=== PATIENT | female | born 1975 | race Caucasian/White ===

== ENCOUNTER 2016-09-01 13:00 | Inpatient (IN) | payer OTHER ==
[~2016-09-01] VITALS: Ht 157.5 cm; Wt 110.6 kg
--- NOTE | ~2016-09-01 | OR ---
[facility] 41 Y [address] ROOM: [place] [address] LOCATION: [facility] ADMIT DATE: 09/15/2016 OR/Procedure Report DISCHARGE DATE: FAMILY PHYSICIAN: Steve Garvey MD ATTENDING PHYSICIAN: CAMILLE ASTUDILLO SURGEON: Camille Astudillo MD WOODEN TANK ERECTOR: 1. Ramiro Francois CST/ETTA. 2. Camille Warren. DATE OF PROCEDURE: 09/15/2016 PREOPERATIVE DIAGNOSIS: Degenerative joint disease, left knee. POSTOPERATIVE DIAGNOSIS: Degenerative joint disease, left knee. OPERATION: Left total knee arthroplasty with computer navigation. ANESTHESIA: Spinal anesthesia plus adductor canal block plus periarticular local anesthesia (ropivacaine with epinephrine and Toradol). ESTIMATED BLOOD LOSS: Less than 10 mL. DRAIN: None. SPECIMEN: None. COMPLICATIONS: None. IMPLANT SYSTEM: Velma Triathlon. 1. Size 3 left posterior stabilized femoral component. 2. Size 2 universal modular tibial baseplate. 3. A 9 mm posterior stabilized size 2 X3 tibial polyethylene insert. 4. A 29 mm oval X3 patellar component. INDICATIONS FOR SURGERY: Teodoro Reynolds is a 41-year-old female who presents with advanced left knee degenerative joint disease and associated severely compromised activities of daily living. The patient has decided to proceed with knee replacement after having been thoroughly counseled regarding the associated risks, benefits, and limitations. We have specifically reviewed the risks and implications of infection, deep venous thrombosis, pulmonary embolism, mortality, neurovascular complications, blood transfusion (and associated potential for disease transmission or transfusion reaction), stiffness, instability, mechanical deterioration of the components (due to wear and or loosening), and the potential need for revision. We have also emphasized the importance of active involvement and compliance with post- operative physical therapy as a means of optimizing range of motion and [facility] 41 Y [address] ROOM: [place] [address] LOCATION: [facility] ADMIT DATE: 09/15/2016 OR/Procedure Report DISCHARGE DATE: FAMILY PHYSICIAN: Steve Garvey MD ATTENDING PHYSICIAN: CAMILLE ASTUDILLO functional recovery. Informed consent has been granted. DESCRIPTION OF PROCEDURE: The patient was positioned supine after administration of anesthesia and prophylactic antibiotics. A well-padded pneumatic tourniquet was placed around the left proximal thigh, and the left lower extremity was prepped and draped with vigilant sterile technique. The patient's name as well as the intended operative side and procedure were confirmed with a verbal time-out involving myself, the circulating nurse, the scrub nurse, and the anesthesiologist. Examination under anesthesia demonstrated a large effusion. There was no erythema. There was no abnormal warmth. There were no active skin lesions or masses. Range of motion under anesthesia was from 5 degrees of hyperextension to 130 degrees of flexion. There was no ligamentous insufficiency. The left lower extremity was elevated and exsanguinated with an Esmarch wrap, and the pneumatic tourniquet was inflated to 300mmHg. The knee was approached through a longitudinal midline incision. A medial parapatellar arthrotomy was performed and the patella was everted. Examination of the joint space demonstrated an abundant amount of benign-appearing translucent synovial fluid. There were no loose bodies. There was no synovitis. There was a small popliteal cyst which I decompressed into the posteromedial aspect of the joint by dilating its point of communication with the posterior capsule. Cruciate ligaments were intact. The lateral meniscus was normal. There was mild inner perimeter fraying of the medial meniscus. The articular cartilage at the lateral femoral condyle was normal. There were superficial fissuring at the medial aspect of the lateral tibial plateau. There was full-thickness loss of articular cartilage involving a 1.5 cm diameter region of the anteromedial aspect of the medial tibial plateau. There were intermixed grade 3 and grade 4 degenerative changes throughout the majority of the medial femoral condyle. There was high-grade partial-thickness articular cartilage loss extending across the entire equator of the patella, and there was extensive full-thickness fissuring of the articular cartilage at the patella. There were no significant degenerative changes at the femoral trochlea. There were small osteophytes at the medial femoral condyle and medial tibial plateau. Remnants of the menisci and cruciate ligaments were excised. The Rebit navigation femoral tracker was pinned in place at the distal aspect of the femoral trochlea. Absence of motion between the femur and the tracking device was confirmed manually and visually. Femoral osseous landmarks were obtained in order to calibrate the computer navigation system. Landmarks included the center of rotation of the ipsilateral hip, the center-point of the distal femur, the femoral AP axis, 57 points on the medial femoral condyle PATIENT'S NAME: TEODORO REYNOLDS [facility] AGE: 41 Y [address] ROOM: [id number] [place], [place] [address] LOCATION: [facility] ADMIT DATE: 09/15/2016 OR/Procedure Report DISCHARGE DATE: FAMILY PHYSICIAN: Steve Garvey MD ATTENDING PHYSICIAN: CAMILLE ASTUDILLO articular surface, and 57 points on the lateral femoral condyle articular surface. The Unified Office computer navigation system was subsequently utilized to position the distal femoral resection block such that the distal femoral resection was performed perfectly perpendicular to the femoral mechanical axis. The distal femoral resection was performed with a Beam. oscillating saw. The Unified Office computer navigation tibial tracker was pinned in place at the anterior aspect of the tibial plateau. Absence of motion between the tibia and the tracking device was confirmed manually and visually. Tibial osseous landmarks were obtained in order to calibrate the computer navigation system. Landmarks included the center-point of the tibial plateau, the AP tibial axis, 57 points on the medial tibial plateau articular surface, 57 points on the lateral tibial plateau articular surface, the medial malleolus, and the lateral malleolus. The Unified Office computer navigation system was subsequently utilized to position the proximal tibial resection block such that the proximal tibial resection was performed perfectly perpendicular to the tibial mechanical axis. The proximal tibial resection was performed with a [employer] oscillating saw. Perpendicularity of the tibial resection with respect to the tibial shaft axis was reconfirmed by inserting a spacer- block attached to an extramedullary guide jassi. External rotation of the anterior and posterior femoral resections was set parallel to the epicondylar axis and carefully adjusted in order to create a rectangular flexion gap. The box resection was performed with a reciprocating saw. Anterior and posterior chamfer resections were performed with the oscillating saw. Posterior condyle osteophytes were excised with an osteotome. All other osteophytes were excised with a rongeur. Resection of all remnants of the menisci was reconfirmed. Flexion and extension gaps were confirmed to be symmetric and well balanced with a spacer-block technique. The patella resection was performed with an oscillating saw such that the composite thickness of the reconstructed patella was equivalent to the thickness of the ouzinkie patella. Patella tracking was optimal, and there was no need for a lateral retinacular release. All trial components were removed and all prepared osseous surfaces were thoroughly irrigated with pulsatile saline lavage and dried prior to cementing all three components in a single stage using Tabatha Simplex cement containing pre-mixed tobramycin. All extruded excess cement was removed. The entire joint space was thoroughly inspected and thoroughly irrigated with bacteriostatic pulsatile saline lavage to assure that there was no residual debris of any sort. Final range of motion was from full extension (with no passive hyperextension) PATIENT'S NAME: TEODORO REYNOLDS [facility] AGE: 41 Y [address] ROOM: [address] [address] LOCATION: [facility] ADMIT DATE: 09/15/2016 OR/Procedure Report DISCHARGE DATE: FAMILY PHYSICIAN: Steve Garvey MD ATTENDING PHYSICIAN: CAMILLE ASTUDILLO to 130 degrees of flexion. Patella tracking was reconfirmed to be optimal. There was excellent anteroposterior stability at 90 degrees of flexion. There was 0 mm of medial lift-off to valgus stress in full extension. There was 1 mm of lateral lift-off to varus stress in full extension. The arthrotomy was closed with multiple simple and [id number] interrupted #1 Vicryl. Subcutaneous tissues were thoroughly re-irrigated with bacteriostatic pulsatile saline lavage. Subcutaneous tissues were re- approximated with simple buried interrupted #0 Vicryl sutures. The skin was closed with simple buried interrupted 2-0 Vicryl sutures followed by surgical arian. The dressing consisted of Xeroform gauze, 4x4 gauze, ABD pads and two 6-inch Alex Wraps. There were no intra-operative complications. MD OSMAR LONDONO/modl /[id number] d: 09/15/161845 t: 09/17/162035, OPERATIVE SUMMARY
--- NOTE | ~2016-09-01 | DS ---
PATIENT'S NAME: TEODORO REYNOLDS [facility] AGE: 41 Y [address] ROOM: [place] [address] LOCATION: [facility] ADMIT DATE: 09/15/2016 Discharge Summary DISCHARGE DATE: 09/17/2016 FAMILY PHYSICIAN: Steve Garvey MD ATTENDING PHYSICIAN: Camille Astudillo PRIMARY DIAGNOSIS: Degenerative joint disease of the left knee. SECONDARY DIAGNOSES: 1. Hypertension. 2. Hyperlipidemia. 3. BMI of 44. PROCEDURE PERFORMED: Left total knee arthroplasty with computer navigation. HISTORY: The patient is a 41-year-old year old female, who presents with advanced left knee degenerative joint disease and associated severely compromised activities of daily living. The patient has decided to proceed with total knee arthroplasty after having been thoroughly counseled regarding the risks, benefits, limitations and alternatives. Please refer to the outpatient clinic notes and admission history and physical for this patient. HOSPITAL COURSE: The patient underwent left total knee arthroplasty on 09/15/2016 without complications. Spinal anesthesia plus adductor canal block plus periarticular local anesthesia was utilized. The patient received 24 hours of perioperative prophylactic antibiotics and remained hemodynamically stable, neurovascularly intact throughout the entire hospital course. The postoperative prophylactic deep venous thrombosis prophylaxis consisted of Xarelto, early mobilization and pneumatic compression devices. Daily physical therapy for gait training, transfer training range of motion and quadriceps isometric exercises were received. The patient progressed well in physical therapy. On the date of discharge, 09/17/2016, the incision at the knee was healing well and showed no signs of infection. DISPOSITION: Home. DISCHARGE ACTIVITY: The patient is to bear weight as tolerated with range of motion and quadriceps isometric exercises as instructed. The operative extremity is to be elevated at least 90% of the day. There is to be sterile 4x4 gauze dressings to the incision daily. Dr. Astudillo is to be notified immediately if there is any increased pain, fevers, chills erythema or drainage. DISCHARGE MEDICATIONS: Include: 1. Xarelto 10 mg, take 1 tab p.o. t.i.d. for DVT prevention. PATIENT'S NAME: TEODORO REYNOLDS [facility] AGE: 41 Y [address] ROOM: [place] [address] LOCATION: [facility] ADMIT DATE: 09/15/2016 Discharge Summary DISCHARGE DATE: 09/17/2016 FAMILY PHYSICIAN: Steve Garvey MD ATTENDING PHYSICIAN: Camille Astudillo 2. Diazepam 5 mg, take 1 tablet every 6 hours as needed for muscle spasms. 3. Dilaudid 2 mg, take 1 to 2 tablets p.o. every 4 hours as needed for pain. FOLLOWUP: Followup appointment is to be with Dr. Astudillo on 09/22/2016 for initial postoperative evaluation and x-rays at that time. SUNITHA VARGHESE FOR CAMILLE ASTUDILLO MD TLB/modl /[id number] d: 09/21/16 0840 t: 09/22/16 1109, DISCHARGE SUMMARY
[2016-09-01] MEDS ORDERED: MOTRIN800 MG PO (16:57)
[2016-09-01] MEDS ORDERED: BENICAR40 MG PO (16:59)
[2016-09-01] MEDS ORDERED: CYMBALTA60 MG PO (16:59)
[2016-09-01] MEDS ORDERED: THERA-VITE W/ B1 TAB PO (17:00)
[2016-09-01] MEDS ORDERED: ZOCOR20 M1 PO (17:00)
[2016-09-15 06:43] LABS: BILIRUBIN URINE NEGATIVE (NEGATIVE); BLOOD URINE NEGATIVE /UL (NEGATIVE); GLUCOSE URINE NEGATIVE (NEGATIVE); KETONE URINE NEGATIVE (NEGATIVE); LEUKOCYTES URINE 25 /UL (NEGATIVE); NITRITE URINE NEGATIVE (NEGATIVE); PROTEIN URINE 30 mg/dL (NEGATIVE); UROBILINOGEN URINE NORMAL (NORMAL)
[2016-09-15 06:44] LABS: COLOR URINE YELLOW (YELLOW); TURBIDITY URINE 1+ (CLEAR)
[2016-09-15 06:55] LABS: AMORPHOUS URINE 1+ (NEGATIVE); BACTERIA URINE FEW (NEGATIVE); MUCUS URINE 1+ (NEGATIVE); RBC URINE 0-2 #/HPF (NEGATIVE); WBC URINE 0-2 #/HPF (NEGATIVE)
--- NOTE | 2016-09-15 15:56 | NUR ---
Introduced self/role to patient who attended the preop class. Reports she lives in [place] with spouse who will be available to help upon discharge. Has walker. Reviewed and encouraged use of IS. Has foot pumps on bilat. Will follow and assist as needed.
--- NOTE | 2016-09-15 16:14 | NUR ---
Significant Event:Pt arrived to 3N at 1015. Pt has been up to chair and bedside commode with 1 assist. Pt tolerates activity well. Pt weight bearing as tolerated. Pt has minimal pain, rates pain a 1 on 0-10 scale. Pt describes pain in left knee as "burning". Pt has full sensation and CSM WNL. Pt is taking tylenol and dilaudid 2 mg to control pain. Pt does IS 10x every hour while awake and bed exercises 100x every hour. Pt oriented x3. Follow up:
--- NOTE | 2016-09-15 18:54 | NUR ---
I was preceptor for student nurse Rae Enamorado and agree with her charting for this shift.
--- NOTE | 2016-09-16 04:46 | NUR ---
Significant Event: A&O x3. Heart rate 98-107. Othwerise, VSS. Dressing is CDI. CSM WNL. Up to bathroom with 1 assist, gait belt and walker. IV saline locked. Ice to knee. Dilaudid and scheduled tylenol for pain, will update with times. Follow up:
--- NOTE | 2016-09-16 09:10 | NUR ---
Introduced self/role to patient, her Dagoberto and kids. They lives in [place]. She denied any barriers to going home or at home. Added my name to her marker board. Planning to go home tomorrow. Will continue to follow.
--- NOTE | 2016-09-16 16:25 | NUR ---
Significant Event: PT alert and oriented x3. VSS. CLEMENT wrap dry and intact. LISA hoes on during day off at HS. CSM WNL. Up to bathroom one assist, ambulate in bloom to joint class with PT with gaitbelt and walker. IV saline locked. Ice to knee, Pt rated pain at highest 7 on scale 0-10 during shift. IS 10x every hour while awkae and bed exercises. Scheduled tylenol given and PRN dilaudid 2mg given 1700. Follow up:
--- NOTE | 2016-09-17 03:41 | NUR ---
Significant Event: A/O X 3. SAT UP IN RECLINER CHAIR. AMBULATED TO BR WITH ONE ASSIST, WALKER AND GAITBELT, GOOD TOLERANCE. VOIDS GOOD AMOUNTS, NO BM. ACEWRAP DRSGS DRY-INTACT LEFT KNEE. EZ-WRAP TO LEFT KNEE. DENIES NUMBNESS OR TINGLING TO LOWER EXTREMITIES. GOTTEN DILAUDID 2MG TAB FOR PAIN LEFT KNEEAT 2138, RATE 7, LATER A 5, AND SLEEPING AFTERWARDS. ON ROUTINE SCHEDULED TYLENOL X STRENGTH 2300/0500. IV SALINE LOCK INTACT. Follow up:
[2016-09-17] MEDS ORDERED: TYLENOL EXTRA500 MG PO (10:42)
[2016-09-17] MEDS ORDERED: COLACE100 MG PO (10:43)
[2016-09-17] MEDS ORDERED: NEURONTIN300 MG PO (10:44)
[2016-09-17] MEDS ORDERED: MIRALAX17 GM PO (10:45)
[2016-09-17] MEDS ORDERED: XARELTO10 MG PO (10:46)
[2016-09-17] MEDS ORDERED: VALIUM5 MG PO (10:47)
[2016-09-17] MEDS ORDERED: DILAUDID 2MG(HYD2 MG PO (10:49)
[2016-09-17] MEDS ORDERED: CELEBREX200 MG PO (10:50)
--- NOTE | 2016-09-17 12:45 | NUR ---
D: PATIENT ALERT AND ORIENTED X3. CSM ASSESSMENTS WNL TO L) LEG. GAUZE/TUBIGRIP DRESSING TO L) KNEE C/D/I. AMBULATES TO BATHROOM AND UP TO CHAIR WITH SBA, USE OF WALKER/GAIT BELT. PAIN WELL CONTROLLED WITH DILAUDID 1 TAB GIVEN LAST AT 1218 AND TYLENOL EXTRA STRENGTH 2 TABS LAST AT 1142. BILATERAL KNEE HIGH LISA HOSE AND FOOT PUMPS ON. EZ WRAP TO L) KNEE. DISCHARGE INSTRUCTIONS REVIEWED WITH PATIENT AND , VERBALIZES UNDERSTANDING. PATIENT DISMISSED TO HOME, ACCOMPANIED BY . ASSISTED TO VEHICLE VIA W/D AND TA ASSISTANCE. DRESSING TO L) KNEE CHANGED THIS AM BY Chica HELTON.
== END 2016-09-17 12:45 | disposition disaster alternative care site (69) | DRG 470 ==
LOC: G3N 09-15 05:14
PROVIDERS: ADMIT Orthopaedic Surgery
PROC: 0SRD0J9 Replacement of Left Knee Joint with Synthetic Substitute, Cemented, Open Approach (ICD-10-PCS; principal; 2016-09-15)
DX: M17.12 Unilateral primary osteoarthritis, left knee (principal); Z68.41 Body mass index [BMI] 40.0-44.9, adult; I10 Essential (primary) hypertension; E78.5 Hyperlipidemia, unspecified
CPT/HCPCS: C1713; C1776; J0690; J1100; J1885; J2001; J2250; J2795; J7120

== ENCOUNTER → 2016-09-03 | Outpatient (CLI) | payer OTHER ==
[~2016-09-03] MED LIST: AMOXICILLIN500 MG PO; BENICAR40 MG PO; CELEBREX200 MG PO; COLACE100 MG PO; CYMBALTA60 MG PO; DILAUDID 2MG(HYD2 MG PO; MIRALAX17 GM PO; MOTRIN800 MG PO; NEURONTIN300 MG PO; THERA-VITE W/ B1 TAB PO; TYLENOL EXTRA500 MG PO; VALIUM5 MG PO; XARELTO10 MG PO; ZOCOR20 M1 PO
== END | disposition disaster alternative care site (69) ==
LOC: GPOC 09-01 13:00 → GNJRC 11:00
DX: Z01.812 Encounter for preprocedural laboratory examination (principal); M17.12 Unilateral primary osteoarthritis, left knee
CPT/HCPCS: C1713; C1776

== ENCOUNTER 2016-10-26 15:00 | Inpatient (IN) | payer OTHER ==
[~2016-10-26] VITALS: Ht 157.5 cm; Wt 113.3 kg
--- NOTE | ~2016-10-26 | DS ---
PATIENT'S NAME: TEODORO REYNOLDS [facility] AGE: 41 Y [address] ROOM: [place] [address] LOCATION: [facility] ADMIT DATE: 11/02/2016 Discharge Summary DISCHARGE DATE: 11/04/2016 FAMILY PHYSICIAN: Steve Garvey MD ATTENDING PHYSICIAN: Camille Astudillo PRIMARY DIAGNOSIS: Degenerative joint disease of the right knee. SECONDARY DIAGNOSES: 1. Hypertension. 2. Hyperlipidemia. 3. Obesity, BMI of 45. PROCEDURE PERFORMED: Right total knee arthroplasty with computer navigation. HISTORY: The patient is a 41-year-old female, who presents with advanced right knee degenerative joint disease and associated severely compromised activities of daily living. The patient has decided to proceed with total knee arthroplasty after having been thoroughly counseled regarding the risks, benefits, limitations and alternatives. Please refer to the outpatient clinic notes and admission history and physical for this patient. HOSPITAL COURSE: The patient underwent a right total knee arthroplasty on 11/02/2016 without complications. Spinal anesthesia plus adductor canal block plus periarticular local anesthesia was utilized. The patient received 24 hours of perioperative prophylactic antibiotics and remained hemodynamically stable, neurovascularly intact throughout the entire hospital course. The postoperative prophylactic deep venous thrombosis prophylaxis consisted of Xarelto 10 mg, early mobilization and pneumatic compression devices. Daily physical therapy for gait training, transfer training range of motion and quadriceps isometric exercises were received. The patient progressed well in physical therapy. On the date of discharge, 11/04/2016, the incision at the knee was healing well and showed no signs of infection. DISPOSITION: Home. DISCHARGE ACTIVITY: The patient is to bear weight as tolerated with range of motion and quadriceps isometric exercises as instructed. The operative extremity is to be elevated at least 90% of the day. There is to be sterile 4x4 gauze dressings to the incision daily. Dr. Astudillo is to be notified immediately if there is any increased pain, fevers, chills erythema or drainage. DISCHARGE MEDICATIONS: 1. Xarelto 10 mg, take one tab p.o. daily for DVT prevention. PATIENT'S NAME: TEODORO REYNOLDS [facility] AGE: 41 Y [address] ROOM: [address] [address] LOCATION: [facility] ADMIT DATE: 11/02/2016 Discharge Summary DISCHARGE DATE: 11/04/2016 FAMILY PHYSICIAN: Steve Garvey MD ATTENDING PHYSICIAN: Camille Astudillo 2. Valium 5 mg, take one-half tablet to one tablet every 6 hours as needed for muscle spasms. 3. Celebrex 200 mg, take one tab p.o. b.i.d. p.r.n. pain. 4. Dilaudid 2 mg, take 1 to 2 tablets p.o. every 4 hours as needed for pain. FOLLOWUP: Follow up appointment is to be with Dr. Astudillo on 11/09/2016 for initial postoperative evaluation and x-rays at that time. SUNITHA VARGHESE FOR CAMILLE ASTUDILLO MD TLB/modl /[id number] d: 11/18/16 0426 t: 11/19/16 0842, DISCHARGE SUMMARY
--- NOTE | ~2016-10-26 | OR ---
[facility]GE[facility] 41 Y [address] ROOM: [place] [address] LOCATION: [facility] ADMIT DATE: 11/02/2016 OR/Procedure Report DISCHARGE DATE: FAMILY PHYSICIAN: Steve Garvey MD ATTENDING PHYSICIAN: CAMILLE ASTUDILLO SURGEON: Camille Astudillo MD CHILD CARE ASSOCIATE TEACHER: 1. SUNITHA Singletary. 2. Ramiro Francois CST/SHOT POLISHER. DATE OF PROCEDURE: 11/02/2016 PRE-OP DIAGNOSIS: Advanced right knee degenerative joint disease (primary osteoarthritis), obesity. POST-OP DIAGNOSIS: Advanced right knee degenerative joint disease (primary osteoarthritis), obesity. OPERATION: Right total knee arthroplasty with computer navigation. ANESTHESIA: Spinal anesthesia plus adductor canal block plus periarticular local anesthesia (ropivacaine with epinephrine). ESTIMATED BLOOD LOSS: Less than 10 mL. DRAIN: None. SPECIMEN: None. COMPLICATIONS: None. IMPLANT SYSTEM: [employer]. 1. Size 3 right posterior stabilized femoral component. 2. Size 2 universal modular tibial baseplate. 3. An 11 mm posterior stabilized size 2 X3 tibial polyethylene insert. 4. A 29 mm oval X3 patella component. INDICATIONS FOR SURGERY: Teodoro Reynolds is a 41-year-old female who presents with advanced right knee degenerative joint disease and associated severely compromised activities of daily living. The patient has decided to proceed with knee replacement after having been thoroughly counseled regarding the associated risks, benefits, and limitations. We have specifically reviewed the risks and implications of infection, deep venous thrombosis, pulmonary embolism, mortality, neurovascular complications, blood transfusion (and associated potential for disease transmission or transfusion reaction), stiffness, instability, mechanical deterioration of the components (due to wear and or loosening), and the potential need for revision. We have also PAT[facility] AGE: 41 Y [address] ROOM: [place] [address] LOCATION: [facility] ADMIT DATE: 11/02/2016 OR/Procedure Report DISCHARGE DATE: FAMILY PHYSICIAN: Steve Garvey MD ATTENDING PHYSICIAN: CAMILLE ASTUDILLO emphasized the importance of active involvement and compliance with post- operative physical therapy as a means of optimizing range of motion and functional recovery. Informed consent has been granted. DESCRIPTION OF PROCEDURE: The patient was positioned supine after administration of anesthesia and prophylactic antibiotics. A well-padded pneumatic tourniquet was placed around the right proximal thigh, and the right lower extremity was prepped and draped with vigilant sterile technique. The patient's name as well as the intended operative side and procedure were confirmed with a verbal time-out involving myself, the circulating nurse, the scrub nurse, and the anesthesiologist. Examination under anesthesia demonstrated a large effusion. There was no erythema. There was no abnormal warmth. There were no active skin lesions or masses. There were no significant preexisting scars. Range of motion under anesthesia was from full extension to 130 degrees of flexion. There was no ligamentous insufficiency. The right lower extremity was elevated and exsanguinated with an Esmarch wrap, and the pneumatic tourniquet was inflated to 300mmHg. The knee was approached through a longitudinal midline incision. A medial parapatellar arthrotomy was performed and the patella was everted. Examination of the joint space demonstrated a large amount of benign-appearing translucent synovial fluid. Cruciate ligaments were intact. There were no loose bodies. There was generalized mildly proliferative synovitis. No synovectomy was performed. There were intermixed grade 3 and grade 4 degenerative changes across the inferior half of the apex of the patella and inferior half of the medial facet of the patella. There were grade 2 degenerative changes at the medial half of the femoral trochlea. There were very small osteophytes at the medial and lateral margins of the femoral trochlea. There were intermixed grade 3 and grade 4 degenerative changes throughout the medial femoral condyle. There was a 1.5 cm diameter region of full-thickness articular cartilage loss at the anterior portion of the medial tibial plateau. There was extensive grade 3 chondromalacia throughout the remainder of the medial tibial plateau. There were mild grade 2 degenerative changes and a very small osteophyte at the lateral femoral condyle. There were grade 2 degenerative changes and a very small osteophyte at the lateral tibial plateau. There was mild inner perimeter tearing of the medial meniscus. There was mild inner perimeter tearing of the lateral meniscus. There was a prominent varicosity at the meniscal capsular junction of the lateral meniscus. Remnants of the menisci and cruciate ligaments were excised. The [employer] navigation femoral tracker was pinned in place at the distal aspect of the femoral trochlea. Absence of motion between the femur and the tracking PATIENT'S NAME: TEODORO REYNOLDS [facility] AGE: 41 Y [address] ROOM: [address] [place] [id number] LOCATION: [facility] ADMIT DATE: 11/02/2016 OR/Procedure Report DISCHARGE DATE: FAMILY PHYSICIAN: Steve Garvey MD ATTENDING PHYSICIAN: CAMILLE ASTUDILLO device was confirmed manually and visually. Femoral osseous landmarks were obtained in order to calibrate the computer navigation system. Landmarks included the center of rotation of the ipsilateral hip, the center-point of the distal femur, the femoral AP axis, 57 points on the medial femoral condyle articular surface, and 57 points on the lateral femoral condyle articular surface. The [employer] computer navigation system was subsequently utilized to position the distal femoral resection block such that the distal femoral resection was performed perfectly perpendicular to the femoral mechanical axis. The distal femoral resection was performed with a [employer] oscillating saw. The [employer] computer navigation tibial tracker was pinned in place at the anterior aspect of the tibial plateau. Absence of motion between the tibia and the tracking device was confirmed manually and visually. Tibial osseous landmarks were obtained in order to calibrate the computer navigation system. Landmarks included the center-point of the tibial plateau, the AP tibial axis, 57 points on the medial tibial plateau articular surface, 57 points on the lateral tibial plateau articular surface, the medial malleolus, and the lateral malleolus. The [employer] computer navigation system was subsequently utilized to position the proximal tibial resection block such that the proximal tibial resection was performed perfectly perpendicular to the tibial mechanical axis. The proximal tibial resection was performed with a [employer] Precision oscillating saw. Perpendicularity of the tibial resection with respect to the tibial shaft axis was reconfirmed by inserting a spacer- block attached to an extramedullary guide jassi. External rotation of the anterior and posterior femoral resections was set parallel to the epicondylar axis and carefully adjusted in order to create a rectangular flexion gap. The box resection was performed with a reciprocating saw. Anterior and posterior chamfer resections were performed with the oscillating saw. Posterior condyle osteophytes were excised with an osteotome. All other osteophytes were excised with a rongeur. Resection of all remnants of the menisci was reconfirmed. Flexion and extension gaps were confirmed to be symmetric and well balanced with a spacer-block technique. The patella resection was performed with an oscillating saw such that the composite thickness of the reconstructed patella was equivalent to the thickness of the sioux patella. Patella tracking was confirmed to be optimal. Patellar tracking was optimal, and there was no need for a lateral retinacular release. All trial components were removed and all prepared osseous surfaces were thoroughly irrigated with pulsatile saline lavage and dried prior to cementing all three components in a single stage using [employer] Simplex cement containing pre-mixed tobramycin. All extruded excess cement was removed. The entire PATIENT'S NAME: TEODORO REYNOLDS [facility] AGE: 41 Y [address] ROOM: [address] [address] LOCATION: [facility] ADMIT DATE: 11/02/2016 OR/Procedure Report DISCHARGE DATE: FAMILY PHYSICIAN: Steve Garvey MD ATTENDING PHYSICIAN: CAMILLE ASTUDILLO joint space was thoroughly inspected and thoroughly irrigated with bacteriostatic pulsatile saline lavage to assure that there was no residual debris of any sort. Final range of motion was from full extension (with no passive hyperextension) degrees of extension to 130 degrees of flexion. Patella tracking was reconfirmed to be optimal. There was very good anteroposterior stability at 90 degrees of flexion. There was less than 1 mm of medial lift-off to valgus stress in full extension. There was 1 mm of lateral lift-off to varus stress in full extension. The arthrotomy was closed with multiple simple and [id number] interrupted #1 Vicryl. Subcutaneous tissues were thoroughly re-irrigated with bacteriostatic pulsatile saline lavage. Subcutaneous tissues were re- approximated with simple buried interrupted #0 Vicryl sutures. The skin was closed with simple buried interrupted 2-0 Vicryl sutures followed by surgical arian. The dressing consisted of Xeroform gauze, 4x4 gauze, ABD pads and two 6-inch Alex Wraps. There were no intra-operative complications. It should be noted that the physician's nursing home assistant played an active, integral role throughout this entire operation. By providing expert retraction, they greatly facilitated and expedited safe and effective exposure of the distal femur, proximal tibia and patella for preparation and implantation of the components. They were also actively involved in the patient's positioning, prepping and draping, as well as wound closure. MD OSMAR LONDONO/raleigh /[id number] d: 11/02/161906 t: 11/04/16 1745, OPERATIVE SUMMARY
[~2016-10-26 15:00] MED LIST changes: -AMOXICILLIN500 MG PO
[2016-10-26] MEDS ORDERED: AMOXICILLIN500 MG PO (15:08)
--- NOTE | 2016-11-02 17:23 | NUR ---
Significant Event: Pt doing great, VSS 1900 is the 3rd hourly, on RA, Up to BR x1, inc prior to that and 400 on BSC, Pain well controlled w/ PO Dilaudid, last dose 1555, denies N/V, CSM's are WNL, Ancef due at 1800, gave at 1730 Follow up: Pain
--- NOTE | 2016-11-03 03:42 | NUR ---
Significant Event: Dressing is clean, dry and intact. CSM WNL. Voids without difficulty. 1 assist with transfers. Dilaudid last at 0257. Valium at 0011. On 1 L of oxygen nasal cannula. Follow up:
--- NOTE | 2016-11-03 10:05 | NUR ---
Introduced self/role to patient. She lives in [place] with her . She isn't aware of any barriers to going home or at home. She is planning on dismissal tomorrow. Added my name to her marker board, will continue to follow.
--- NOTE | 2016-11-03 14:47 | NUR ---
Significant Event: Ambulates with SBA and walker. Dressing C/D/I. Ez wrap ice at all times. Voids without difficulty. Dilaudid 2mg, Valium 5mg and Tylenol 1000mg for pain control. Titrated to room air. Plans to dismiss to home tomorrow. Follow up:
--- NOTE | 2016-11-04 04:29 | NUR ---
Significant Event: DRESSING IS CLEAN, DRY AND INTACT. CSM WNL. 1 ASSIST WITH TRANSFERS. VOIDS WITHOUT DIFFICULTY. DILAUDID LAST AT 0159. VALIUM AT 2211. POSSIBLE DISMISSAL. Follow up:
[2016-11-04] MEDS ORDERED: TYLENOL EXTRA500 MG PO (14:46)
[2016-11-04] MEDS ORDERED: COLACE100 MG PO (14:47)
[2016-11-04] MEDS ORDERED: NEURONTIN300 MG PO (14:48)
[2016-11-04] MEDS ORDERED: MIRALAX17 GM PO (14:49)
[2016-11-04] MEDS ORDERED: XARELTO10 MG PO (14:50)
[2016-11-04] MEDS ORDERED: VALIUM5 MG PO (14:51)
[2016-11-04] MEDS ORDERED: DILAUDID 2MG(HYD2 MG PO (14:52)
[2016-11-04] MEDS ORDERED: CELEBREX200 MG PO (14:52)
--- NOTE | 2016-11-04 17:04 | NUR ---
Dismissal Note: Ambulates with SBA and walker. Dressing changed, arian intact. Ez wrap ice at all times. Voids without difficutly. Dilaudid 2mg and Tylenol 1000mg for pain control. Aria education given with dismissal instructions, patient and family state understanding.IV d/cd. Dismissed to home with family per private vehicle.
== END 2016-11-04 15:20 | disposition disaster alternative care site (69) | DRG 470 ==
LOC: G3N 11-02 08:02
PROVIDERS: ADMIT Orthopaedic Surgery
PROC: XR2G021 Monitoring of Right Knee Joint using Intraoperative Knee Replacement Sensor, Open Approach, New Technology Group 1 (ICD-10-PCS; principal; 2016-11-02)
PROC: 0SRC0JZ Replacement of Right Knee Joint with Synthetic Substitute, Open Approach (ICD-10-PCS; principal; 2016-11-02)
DX: M17.11 Unilateral primary osteoarthritis, right knee (principal); Z68.42 Body mass index [BMI] 45.0-49.9, adult; Z96.652 Presence of left artificial knee joint; E66.9 Obesity, unspecified
CPT/HCPCS: C1713; C1776; J0690; J1100; J1885; J2001; J2250; J2795; J7120